=== PATIENT | female | born 1940 | race Caucasian/White ===

== ENCOUNTER 2016-11-05 11:16 | Day surgery (SDC) | payer MEDICARE, OTHER ==
[2016-11-05] MEDS ORDERED: LACTATED RINGERS 500 ML IV ONE (11:42)
[2016-11-05] MEDS ORDERED: KETOROLAC 0.45% OPHTH DROPS OPTH ONE (12:00)
[2016-11-05] MEDS ORDERED: CYCLOPENTOLATE 1% OPHTH DROPS 2 ML OPTH ONE (12:00)
[2016-11-05] MEDS ORDERED: TROPICAMIDE 1% OPHTH 2 ML DROPS OPTH ONE (12:00)
[2016-11-05] MEDS ORDERED: MIDAZOLAM 2 MG/2 ML VIAL IVP ONE (12:45)
[2016-11-05] MEDS ORDERED: PROPARACAINE 0.5% OPHTH DROPS 15 ML OPTH ONE (13:09)
[2016-11-05] MEDS ORDERED: BSS/LIDOCAINE/EPINEPHRINE 1 ML SYRINGE IO ONE ×2 (13:09)
[2016-11-05] MEDS ORDERED: BRIMONIDINE 0.2% OPHTH DROPS 5 ML OPTH ONE (13:09)
[2016-11-05] MEDS ORDERED: TETRACAINE OPHTH DROPS 2 ML OPTH ONE (13:09)
[2016-11-05] MEDS ORDERED: EPINEPHrine 1 MG/ML AMP IO ONE (13:09)
[2016-11-05] MEDS ORDERED: levoFLOXacin 0.5% OPHTH DROPS 5 ML OPTH ONE (13:09)
[2016-11-05] MEDS ORDERED: CHONDR SULF/HYALURONATE SYRINGE IO ONE (13:09)
== END 2016-11-05 11:17 | disposition home or self-care (01) ==
PROC: 08RJ3JZ Replacement of Right Lens with Synthetic Substitute, Percutaneous Approach (ICD-10-PCS; principal; 2016-11-05 12:10)
DX: H25.11 Age-related nuclear cataract, right eye (principal); J45.909 Unspecified asthma, uncomplicated; I49.9 Cardiac arrhythmia, unspecified
CPT/HCPCS: 66984; V2632; V2787

== ENCOUNTER 2016-11-19 08:29 | Day surgery (SDC) | payer MEDICARE, OTHER ==
[2016-11-19] MEDS ORDERED: LACTATED RINGERS 1,000 ML IV ONE (09:43)
[2016-11-19] MEDS ORDERED: MIDAZOLAM 2 MG/2 ML VIAL IVP ONE (11:00)
[2016-11-19] MEDS ORDERED: BSS/LIDOCAINE/EPINEPHRINE 1 ML SYRINGE IO ONE (11:23)
[2016-11-19] MEDS ORDERED: BRIMONIDINE 0.2% OPHTH DROPS 5 ML OPTH ONE (11:23)
[2016-11-19] MEDS ORDERED: TETRACAINE 0.5% OPHTH DROPS 4 ML OPTH ONE (11:23)
[2016-11-19] MEDS ORDERED: PROPARACAINE 0.5% OPHTH DROPS 15 ML OPTH ONE (11:23)
[2016-11-19] MEDS ORDERED: EPINEPHrine 1 MG/ML AMP IO ONE (11:23)
[2016-11-19] MEDS ORDERED: CHONDR SULF/HYALURONATE SYRINGE IO ONE (11:23)
== END 2016-11-19 08:30 | disposition home or self-care (01) ==
PROC: 08RK3JZ Replacement of Left Lens with Synthetic Substitute, Percutaneous Approach (ICD-10-PCS; principal; 2016-11-19 10:15)
DX: H26.9 Unspecified cataract (principal); K21.9 Gastro-esophageal reflux disease without esophagitis; E03.9 Hypothyroidism, unspecified; G25.81 Restless legs syndrome; J45.909 Unspecified asthma, uncomplicated
CPT/HCPCS: 66984; J7120; V2632

== ENCOUNTER 2017-01-14 08:00 | Outpatient (CLI) | payer MEDICARE, OTHER | END 2017-01-14 08:01 | disposition home or self-care (01) | DX: E89.0 Postprocedural hypothyroidism (principal); L29.9 Pruritus, unspecified; R51 Headache; E21.3 Hyperparathyroidism, unspecified ==

== ENCOUNTER 2017-06-16 15:32 | Emergency (ER) | payer MEDICARE, OTHER ==
[2017-06-16 16:28] VITALS: BP 146/88
--- NOTE | 2017-06-16 17:47 | ED Physician Documentation ---
History of Present Illness - Stated complaint Stated Complaint: L CALF PX/SWELLING - Chief complaint Chief Complaint: Ext Problem - History obtained from History obtained from: Patient - History of Present Illness Timing: Today - Additonal information Additional information: swelling and pain to the left lower lateral calf that has persisted. The patient is concerned about a blood clot and has come to the ED after talking to her primary. She is able to walk on this. Review of Systems Constitutional: denies: Fever, Chills, Myalgias Eyes: denies: Decreased vision Ears: denies: Loss of hearing, Ear pain Nose: denies: Reviewed and negative Throat: denies: Sore throat Cardiac: denies: Chest pain / pressure, Palpitations Respiratory: denies: Dyspnea, Cough GI: reports: Diarrhea. denies: Abdominal Pain, Nausea, Vomiting : denies: Dysuria Musculoskeletal: reports: Extremity pain, Extremity swelling. 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 HEENT: Tonsil/Adenoidectomy - Present Medications Home Medications: Ambulatory Orders Medication Instructions Recorded Confirmed Esomeprazole Magnesium [Nexium] 40 mg PO DAILY 09/17/13 06/16/17 Estrogens, Conjugated [Premarin] 0.3 mg PO DAILY 09/17/13 06/16/17 Levothyroxine [Synthroid] 112 mcg PO DAILY 09/17/13 06/16/17 Propranolol [Inderal] 80 mg PO DAILY 09/17/13 06/16/17 Gabapentin 300 mg PO QPM 12/25/14 06/16/17 Ropinirole HCl 1 mg PO DAILY 12/25/14 06/16/17 Acetaminophen/Diphenhydramine [Eql 2 each PO QPM PRN 11/04/16 06/16/17 Acetaminophen Pm Gelcap] - Allergies Allergies/Adverse Reactions: Allergies Allergy/AdvReac Type Severity Reaction Status Date / Time tape Allergy burn Uncoded 06/16/17 16:20 - Social History Does the pt smoke?: No Smoking Status: Never smoker Does the pt drink ETOH?: No Does the pt have substance abuse?: No - Immunizations Immunizations are current?: Yes - POLST Patient has POLST: No PD ED PE NORMAL - Vitals Vital signs reviewed: Yes (hypertensive ) - General General: No acute distress, Well developed/nourished - HEENT HEENT: Atraumatic, PERRL - Neck Neck: Supple, no meningeal sign - Respiratory Respiratory: No respiratory distress - Derm Derm: Normal color, Warm and dry, No rash - Extremities Extremities: No deformity, Other (There is subtle swelling to the lateral aspect of the left upper calf. There is no tenderness to the posterior thigh. There is some mild swelling to the left foot. ) - Neuro Neuro: No motor deficit, No sensory deficit - Psych Psych: Normal mood, Normal affect Results - Vitals Vitals: Oxygen O2 Source Room air - Rads (name of study) duplex left Radiology: Prelim report reviewed (Impression: Negative for deep venous thrombosis in left lower extremity.), EMP read indepedently, See rad report PD MEDICAL DECISION MAKING - ED course Complexity details: reviewed results, re-evaluated patient, considered differential, d/w patient ED course: 76-year-old female with a pain and swelling in her left lateral calf does not have DVT on ultrasound examination. She cannot really recall what she did to strain this leg or to injure it in any way she was quite active on Thursday doing a lot of housecleaning Thursday she spent the day doing a little of nothing and yesterday had her hair done.She is awoken this morning with this pain and swelling and really cannot find a significant explanation. Departure - Departure Disposition: 01 Home, Self Care Clinical Impression: Strain of calf muscle Qualifiers: Encounter type: initial encounter Laterality: left Qualified Code(s): S86.812A - Strain of other muscle(s) and tendon(s) at lower leg level, left leg, initial encounter Condition: Stable Instructions: ED Strain Muscle Ext Follow-Up: Shane Mckeon MD [Primary Care Provider] - Discharge Date/Time: 06/16/17 19:08
--- NOTE | 2017-06-16 19:06 | Ultrasound Preliminary Report ---
Exam: US Duplex Ext Veins Left IMPRESSION: Negative for deep venous thrombosis in left lower extremity [facility] SITE ID: [id number]
--- NOTE | 2017-06-16 19:09 | Ultrasound Report ---
EXAM: LEFT LOWER EXTREMITY VENOUS ULTRASOUND EXAM DATE: 06/16/2017 06:04 PM. CLINICAL HISTORY: Lateral swelling/pain . COMPARISON: None. TECHNIQUE: Real-time sonographic vascular imaging was performed by the billiard table assembler through the lower extremity utilizing both color-flow and Doppler spectral analysis. Multiple accounts payable representative static dion ges were saved for review. FINDINGS: Common Femoral Vein (CFV): Normal. CFV-GSV Junction: Normal. Profunda Femoral Vein (PFV): Normal. Femoral Vein (FV) Prox: Normal. Femoral Vein (FV) Mid: Normal. Femoral Vein (FV) Dist: Normal. Popliteal Vein: Normal. Posterior Tibial Veins: Normal. Peroneal Veins: Normal. Other: None. IMPRESSION: Negative for deep venous thrombosis in left lower extremity [facility] Referring Provider Line: [phone] SITE ID: [id number]
== END 2017-06-16 19:08 | disposition home or self-care (01) ==
LOC: ED 15:32
DX: S86.812A Strain of other muscle(s) and tendon(s) at lower leg level, left leg, initial encounter (principal); E03.9 Hypothyroidism, unspecified
CPT/HCPCS: 99283

== ENCOUNTER 2017-08-19 14:56 | Outpatient (CLI) | payer MEDICARE, OTHER ==
--- NOTE | 2017-08-20 10:10 | XRAY Report ---
TWO-VIEW CHEST: 08/19/2017 CLINICAL INDICATION: Chest pain. COMPARISON: 09/17/2013 FINDINGS: Frontal and lateral views of the chest demonstrate a normal cardiac silhouette. The lungs are clear. No effusion or pneumothorax is present. IMPRESSION: NORMAL CHEST. JOB #: [id number] EXT JOB #:[id number]
== END 2017-08-19 14:57 | disposition home or self-care (01) ==
LOC: DI.S 14:56
PROVIDERS: ATTEND Nurse Practitioner Family
DX: R07.9 Chest pain, unspecified (principal)
CPT/HCPCS: 71020

== ENCOUNTER 2018-03-11 14:11 | Outpatient (CLI) | payer MEDICARE, OTHER ==
[2018-03-11 14:54] LABS: CALCIUM 8.7 mg/dL (8.5-10.3); CREATININE 1.1 mg/dL (0.4-1.0)
== END 2018-03-11 14:12 | disposition home or self-care (01) ==
LOC: LAB 14:11
PROVIDERS: ATTEND Internal Medicine Cardiovascular Disease
DX: R06.00 Dyspnea, unspecified (principal)
CPT/HCPCS: 36415; 80048

== ENCOUNTER 2018-04-10 08:16 | Outpatient (CLI) | payer MEDICARE, OTHER | END 2018-04-10 08:17 | disposition home or self-care (01) | LOC: DI 08:16 | PROVIDERS: ATTEND Internal Medicine Cardiovascular Disease | DX: I35.1 Nonrheumatic aortic (valve) insufficiency (principal); R06.09 Other forms of dyspnea | CPT/HCPCS: 93306 ==

== ENCOUNTER 2018-05-13 16:15 | Outpatient (CLI) | payer MEDICARE, OTHER ==
--- NOTE | 2018-05-13 17:55 | XRAY Report ---
Reason: PAIN 1ST MT RT FOOT PAIN,LT ANKEL TOES Procedure Date: 05/13/2018 Accession Number: [id number] / [id number] Procedure: XR - Foot 3 View BILAT CPT Code: FULL RESULT: EXAM: BILATERAL FOOT RADIOGRAPHY EXAM DATE: 05/13/2018 04:29 PM. CLINICAL HISTORY: Pain. COMPARISON: Right foot dated 09/25/2015. TECHNIQUE: 3 views. FINDINGS: Bones: No osteopenia. Small accessory ossicle medial to the left navicular base. Small plantar calcaneal spurs, right larger than left. No definite fracture or other bone lesion. Joints: Minimal degenerative changes in the first MTP joints. Otherwise unremarkable. Soft Tissues: Unremarkable. IMPRESSION: Small spurs and other chronic findings. No acute disease. [facility]
--- NOTE | 2018-05-13 17:56 | XRAY Report ---
Reason: PAIN 1ST MT RT FOOT PAIN,LT ANKEL TOES Procedure Date: 05/13/2018 Accession Number: [id number] / [id number] Procedure: XR - Ankle 3 View LT CPT Code: FULL RESULT: EXAM: LEFT ANKLE RADIOGRAPHY EXAM DATE: 05/13/2018 04:29 PM. CLINICAL HISTORY: Pain. COMPARISON: 09/06/2013. TECHNIQUE: 3 views. FINDINGS: Bones: Normal. No fractures or bone lesions. Joints: Normal. No effusion. No subluxations. The ankle mortise is normally aligned. Soft Tissues: Unremarkable. IMPRESSION: Normal ankle radiography. [facility]
== END 2018-05-13 16:16 | disposition home or self-care (01) ==
LOC: DI 16:15
PROVIDERS: ATTEND Podiatrist
DX: M77.32 Calcaneal spur, left foot (principal); M77.31 Calcaneal spur, right foot; M79.675 Pain in left toe(s); M25.572 Pain in left ankle and joints of left foot

== ENCOUNTER 2018-08-26 11:26 | Emergency (ER) | payer MEDICARE, OTHER ==
--- NOTE | 2018-08-26 12:27 | ED Physician Documentation ---
History of Present Illness - Stated complaint Stated Complaint: RODRIGUEZ X 7 DAYS - Chief complaint Chief Complaint: Neuro - History obtained from History obtained from: Patient - History of Present Illness Timing: Today Pain level max: 8 Pain level now: 6 - Additonal information Additional information: Patient is a 77-year-old female with a history of chronic migraine headaches. She states she normally has 1-2/month. Normally resolves with Imitrex. This headache has been coming and going for the past 7 days. It is not a typical location for her on the right side of her head. She states that she does get spots in her vision before her headaches and that this is unchanged for her. She also had intermittent dizzy spells over the last week where she would feel the room spinning for a few seconds at a time. No focal neurological deficits. No new visual changes. The headaches are better with Imitrex. When she has the headache it is worse with light and sound. She has not taken anything for the headache today. Saw her PCP who referred her to the emergency department today. Review of Systems Ten Systems: 10 systems reviewed and negative Constitutional: denies: Fever, Chills Eyes: reports: Photophobia Ears: denies: Ear pain Nose: denies: Rhinorrhea / runny nose, Congestion, Epistaxis, Sinus pressure / pain Throat: denies: Sore throat Cardiac: denies: Chest pain / pressure Respiratory: denies: Cough GI: reports: Nausea. denies: Abdominal Pain, Vomiting, Diarrhea Skin: denies: Rash Musculoskeletal: denies: Neck pain, Back pain Neurologic: denies: Focal weakness, Numbness, Confused, Head injury, LOC PD PAST MEDICAL HISTORY - Past Medical History Past Medical History: Yes Cardiovascular: Arrhythmia, Valve disorder Respiratory: Asthma Endocrine/Autoimmune: HyPOthyroidism GI: GERD, Colon polyps, Other : None HEENT: Chronic vision loss Psych: Depression Musculoskeletal: Osteoarthritis, Fibromyalgia, Chronic back pain Derm: Psoriasis, Rosacea - Past Surgical History Past Surgical History: Yes General: Cholecystectomy, Appendectomy 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 HEENT: Tonsil/Adenoidectomy - Present Medications Home Medications: Ambulatory Orders Medication Instructions Recorded Confirmed Esomeprazole Magnesium [Nexium] 40 mg PO DAILY 09/17/13 06/16/17 Estrogens, Conjugated [Premarin] 0.3 mg PO DAILY 09/17/13 06/16/17 Levothyroxine [Synthroid] 112 mcg PO DAILY 09/17/13 06/16/17 Propranolol [Inderal] 80 mg PO DAILY 09/17/13 06/16/17 Gabapentin 300 mg PO QPM 12/25/14 06/16/17 Ropinirole HCl 1 mg PO DAILY 12/25/14 06/16/17 Acetaminophen/Diphenhydramine [Eql 2 each PO QPM PRN 11/04/16 06/16/17 Acetaminophen Pm Gelcap] Diazepam [Valium] 0 08/26/18 SUMAtriptan [Imitrex] 25 08/26/18 Sumatriptan [Imitrex] 20 mg NS ONCE PRN #7 spray 08/26/18 - Allergies Allergies/Adverse Reactions: Allergies Allergy/AdvReac Type Severity Reaction Status Date / Time tape Allergy Mild burn Uncoded 08/26/18 11:35 - Social History Does the pt smoke?: No Smoking Status: Never smoker Does the pt drink ETOH?: No Does the pt have substance abuse?: No - Immunizations Immunizations are current?: Yes - POLST Patient has POLST: No PD ED PE NORMAL - Vitals Vital signs reviewed: Yes - General General: Alert and oriented X 3, No acute distress, Well developed/nourished - HEENT HEENT: Atraumatic, PERRL, EOMI, Moist mucous membranes, Pharynx benign - Neck Neck: Supple, no meningeal sign - Cardiac Cardiac: RRR, Strong equal pulses - Respiratory Respiratory: No respiratory distress, Clear bilaterally - Abdomen Abdomen: Soft, Non tender, Non distended - Derm Derm: Warm and dry, No rash - Extremities Extremities: No edema - Neuro Neuro: Alert and oriented X 3, tanker driver 2-12 intact, No motor deficit, No sensory deficit Eye Opening: Spontaneous Motor: Obeys Commands Verbal: Oriented GCS Score: 15 - Psych Psych: Normal mood, Normal affect Results - Vitals Vitals: Vital Signs - 24 hr 08/26/18 08/26/18 08/26/18 11:32 14:03 14:55 Temperature 36.7 C 36.6 C Heart Rate 72 54 L 70 Respiratory 18 9 L Rate Blood Pressure 150/87 H 140/62 H O2 Saturation 97 99 100 Oxygen O2 Source Room air - EKG (time done) 1138 Rate: Rate (enter#) (57) Rhythm: NSR Dalton: Normal Intervals: Normal AL QRS: Normal Ischemia: Normal ST segments - Labs Labs: Laboratory Tests 08/26/18 08/26/18 08/26/18 12:50 12:50 12:50 WBC 4.8 RBC 4.45 Hgb 13.1 Hct 39.2 MCV 88.1 MCH 29.5 MCHC 33.5 RDW 13.1 Plt Count 198 MPV 7.9 Neut # (Auto) 1.8 Lymph # (Auto) 2.3 [place] # (Auto) 0.5 Eos # (Auto) 0.2 Baso # (Auto) 0.1 Absolute Nucleated RBC 0.00 Nucleated RBC % 0.1 ESR 17 Sodium 137 Potassium 4.2 Chloride 106 Carbon Dioxide 25 Anion Gap 6.0 BUN 23 H Creatinine 1.0 Estimated GFR (MDRD) 54 L Glucose 106 H Calcium 9.1 Total Bilirubin 0.6 AST 16 ALT 13 Alkaline Phosphatase 58 C-Reactive Protein Total Protein 7.4 Albumin 4.0 Globulin 3.4 Albumin/Globulin Ratio 1.2 Lipase 32 08/26/18 12:50 WBC RBC Hgb Hct MCV MCH MCHC RDW Plt Count MPV Neut # (Auto) Lymph # (Auto) [place] # (Auto) Eos # (Auto) Baso # (Auto) Absolute Nucleated RBC Nucleated RBC % ESR Sodium Potassium Chloride Carbon Dioxide Anion Gap BUN Creatinine Estimated GFR (MDRD) Glucose Calcium Total Bilirubin AST ALT Alkaline Phosphatase C-Reactive Protein < 1.0 Total Protein Albumin Globulin Albumin/Globulin Ratio Lipase - Rads (name of study) head CT Radiology: Prelim report reviewed, EMP read contemporaneously, See rad report (No acute intracranial abnormality) PD MEDICAL DECISION MAKING - ED course Complexity details: reviewed results, re-evaluated patient, considered differential, d/w patient ED course: Patient is a 77-year-old female with her usual migraine headache. Given Toradol and Zofran. Headache resolved. As this had been ongoing for some time, head CT was performed does not does not show any acute abnormalities. No evidence of temporal arteritis. No SAH. No intracranial hemorrhage. Headache resolved in the ED. will trial on intranasal imitrex for home. Patient counseled regarding signs and symptoms for which I believe and urgent re-evaluation would be necessary. Patient with good understanding of and agreement to plan and is comfortable going home at this time This document was made in part using voice recognition software. While efforts are made to proofread this document, sound alike and grammatical errors may occur. Departure - Departure Disposition: 01 Home, Self Care Clinical Impression: Headache Qualifiers: Headache type: unspecified Headache chronicity pattern: acute headache Intractability: not intractable Qualified Code(s): R51 - Headache Condition: Good Instructions: ED Headache Migraine Follow-Up: Shane Mckeon MD [Primary Care Provider] - Within 1 week Prescriptions: Sumatriptan [Imitrex] 20 mg NS ONCE PRN #7 spray PRN Reason: headache Comments: Return if you worsen. Your tests are normal today. You can try the intranasal imitrex at home. Discharge Date/Time: 08/26/18 14:56
[2018-08-26] MEDS ORDERED: KETOROLAC 60 MG/2 ML VIAL IVP STA (12:41)
[2018-08-26] MEDS ORDERED: ONDANSETRON 4 MG/2 ML VIAL IVP STA (12:41)
[2018-08-26 13:33] LABS: BASOPHILS # (AUTO) 0.1 10^3/uL (0.0-0.1); BASOPHILS % (AUTO) 1.2 %; EOSINOPHILS # (AUTO) 0.2 10^3/uL (0.0-0.7); EOSINOPHILS % (AUTO) 3.5 %; HGB - HEMOGLOBIN 13.1 g/dL (12.0-16.0); LYMPHOCYTES # (AUTO) 2.3 10^3/uL (1.5-3.5); MEAN CORPUSCULAR HEMOGLOBIN 29.5 pg (27.0-31.0); MEAN CORPUSCULAR HGB CONC 33.5 g/dL (32.0-36.0); MEAN CORPUSCULAR VOLUME 88.1 fL (81.0-99.0); MEAN PLATELET VOLUME 7.9 fL (7.9-10.8); MONOCYTES # (AUTO) 0.5 10^3/uL (0.0-1.0); MONOCYTES % (AUTO) 10.1 %; NEUTROPHILS # (AUTO) 1.8 10^3/uL (1.5-6.6); NEUTROPHILS % (AUTO) 37.2 %; PLT - PLATELET COUNT 198 10^3/uL (130-450); RED BLOOD COUNT 4.45 10^6/uL (4.20-5.40); RED CELL DISTRIBUTION WIDTH 13.1 % (12.0-15.0); WHITE BLOOD COUNT 4.8 x10^3/uL (4.8-10.8)
[2018-08-26 13:48] LABS: ALBUMIN/GLOBULIN RATIO 1.2 (1.0-2.2); BILIRUBIN,TOTAL 0.6 mg/dL (0.2-1.0); CALCIUM 9.1 mg/dL (8.5-10.3); TOTAL PROTEIN 7.4 g/dL (6.7-8.2)
--- NOTE | 2018-08-26 14:43 | CT Report ---
Reason: R sided headache x1 week Procedure Date: 08/26/2018 Accession Number: [id number] / [id number] Procedure: CT - Head W/O CPT Code: FULL RESULT: EXAM: CT HEAD EXAM DATE: 08/26/2018 02:17 PM. CLINICAL HISTORY: Right-sided headache x1 week. COMPARISON: None. TECHNIQUE: Multiaxial CT images were obtained from the foramen magnum to the vertex. Reformats: Sagittal and coronal. IV contrast: None. In accordance with CT protocol optimization, one or more of the following dose reduction techniques were utilized for this exam: automated exposure control, adjustment of mA and/or KV based on patient size, or use of iterative reconstructive technique. FINDINGS: Parenchyma: No intraparenchymal hemorrhage. No evidence of mass, midline shift, or CT findings of infarction. Nunez-white differentiation is distinct. Extraaxial Spaces: Normal for age. No subdural or epidural collections identified. Ventricles: Normal in size and position. Sinuses and Orbits: Imaged paranasal sinuses, orbits, and mastoids show no significant abnormality. Bones: No evidence of fracture or calvarial defect. Other: None. IMPRESSION: No acute intracranial abnormality. [facility]
[2018-08-26 14:56] VITALS: BP 140/62
== END 2018-08-26 14:56 | disposition home or self-care (01) ==
LOC: ED 11:26
DX: R51 Headache (principal)
CPT/HCPCS: 36415; 70450; 80053; 83690; 85025; 85651; 86140; 93005; 96374; 99283; 99284

== ENCOUNTER 2018-09-24 11:50 | Outpatient (CLI) | payer MEDICARE, OTHER ==
[2018-09-24 20:38] LABS: THYROID STIMULATING HORMONE 1.17 uIU/mL (0.34-5.60)
[2018-09-24 20:40] LABS: FREE T4 (FREE THYROXINE) 1.09 ng/dL (0.58-1.64)
== END 2018-09-24 11:51 | disposition home or self-care (01) ==
LOC: LAB.F 11:50
PROVIDERS: ATTEND Internal Medicine Endocrinology, Diabetes & Metabolism
DX: E89.0 Postprocedural hypothyroidism (principal)
CPT/HCPCS: 36415; 84439; 84443

== ENCOUNTER 2019-01-07 14:47 | Outpatient (CLI) | payer MEDICARE, OTHER ==
--- NOTE | 2019-01-07 15:39 | Mammography Report ---
Reason: SCREENING MAMMO Procedure Date: 01/07/2019 Accession Number: [id number] / [id number] Procedure: [facility] - Screening Mammo w/Kendell CPT Code: FULL RESULT: EXAM: Screening Mammo w/Kendell DATE: 01/07/2019 3:17 PM CLINICAL HISTORY: Screening examination. TECHNIQUE: (B) - Bilateral CC and MLO views were obtained. COMPARISON: None 12/11/2014 12/31/2015, 01/09/2016 PARENCHYMAL PATTERN: (A) - The breasts demonstrate scattered fibroglandular densities bilaterally. FINDINGS: Nearly complete interval resolution of previously discussed posterior inferior opacity. There are no suspicious masses, calcifications, or areas of distortion. IMPRESSION: Negative examination. BI-RADS category 1. RECOMMENDATION: (ANNUAL) - Recommend routine annual screening mammography. BI-RADS CATEGORY: (1) - Negative. STANDARD QUALIFYING STATEMENTS: 1. This examination was not reviewed with the aid of Computer-Aided Detection (CAD). 2. A negative or benign imaging report should not preclude biopsy if clinically suspicious findings are present. 3. Dense breasts may obscure an underlying neoplasm. 4. This examination was reviewed with the aid of 3D breast imaging (tomosynthesis).
== END 2019-01-07 14:48 | disposition home or self-care (01) ==
LOC: DI 14:47
DX: Z12.31 Encounter for screening mammogram for malignant neoplasm of breast (principal)
CPT/HCPCS: 77063; 77067

== ENCOUNTER 2019-05-13 12:34 | Outpatient (CLI) | payer MEDICARE, OTHER ==
--- NOTE | 2019-05-15 02:41 | XRAY Report ---
Reason: CHRONIC BACK PAIN Procedure Date: 05/13/2019 Accession Number: [id number] / [id number] Procedure: XR - ThoracoLumbar 2 View CPT Code: 30509 FULL RESULT: EXAM: THORACOLUMBAR SPINE RADIOGRAPHY EXAM DATE: 05/13/2019 01:41 PM. CLINICAL HISTORY: CHRONIC BACK PAIN. COMPARISONS: XR CERVICAL SPINE 2 OR 3 VIEWS 03/06/2009 5:47 AM. TECHNIQUE: 2 views. FINDINGS: Alignment: Dextroscoliosis of the upper lumbar spine. Bones: No fractures or bone lesions. Disks: Mild degenerative disk disease. Soft Tissues: Normal. The visualized lungs and bowel gas pattern are normal. IMPRESSION: Dextroscoliosis of the upper lumbar spine, with mild degenerative disk disease. No evidence of fracture. [facility]
== END 2019-05-13 12:35 | disposition home or self-care (01) ==
LOC: DI 12:34
PROVIDERS: ATTEND Family Medicine
DX: M51.36 Other intervertebral disc degeneration, lumbar region (principal)
CPT/HCPCS: 72080

== ENCOUNTER 2019-06-17 12:09 | Outpatient (CLI) | payer MEDICARE, OTHER ==
--- NOTE | 2019-06-20 00:55 | CT Report ---
Reason: RIGHT LOWER RIB PAIN Procedure Date: 06/17/2019 Accession Number: [id number] / [id number] Procedure: CT - CHEST WO CPT Code: FULL RESULT: EXAM: CT CHEST EXAM DATE: 06/17/2019 12:55 PM. CLINICAL HISTORY: RIGHT LOWER RIB PAIN. COMPARISONS: ABDOMEN/PELVIS W/ 11/21/2015 5:14 PM. TECHNIQUE: Routine helical CT imaging was performed through the chest. IV contrast: None. Reconstructions: Coronal and sagittal. In accordance with CT protocol optimization, one or more of the following dose reduction techniques were utilized for this exam: automated exposure control, adjustment of mA and/or KV based on patient size, or use of iterative reconstructive technique. FINDINGS: Lungs/Pleura: Approximately 20-30 pulmonary nodules scattered throughout both lungs. The largest measures 4 mm and right middle lobe; image 186 series 4. The nodules are ovoid in shape and sharply marginated. Several of the pulmonary nodules are calcified. No bronchial thickening, consolidation, or edema. Pulmonary vasculature is normal. No pericardial or pleural effusion. No pneumothorax. Mediastinum: Normal. No adenopathy or masses. The heart and great vessels are normal. Bones: Unremarkable. Degenerative disk changes in the thoracic spine. Visualized Abdomen: Unremarkable. 6.3 cm multilobulated hepatic cyst similar in appearance to the study of 11/21/2015. Status post cholecystectomy. Other: None. IMPRESSION: 1. No CT imaging finding to explain the patient's right sided rib pain. 2. Approximately 20-30 pulmonary nodules scattered throughout both lungs. Largest measures 4 mm and several pulmonary nodules are calcified. These nodules may reflect the sequela of prior granulomatous disease exposure. In the absence of known malignancy, no followup imaging is recommended. 3. 6.3 cm hepatic cyst similar appearance to the study from 2015. 4. Status post cholecystectomy. [facility]
== END 2019-06-17 12:10 | disposition home or self-care (01) ==
LOC: DI 12:09
PROVIDERS: ATTEND Family Medicine
DX: R07.81 Pleurodynia (principal); R91.8 Other nonspecific abnormal finding of lung field; K76.89 Other specified diseases of liver; Z90.49 Acquired absence of other specified parts of digestive tract
CPT/HCPCS: 71250

== ENCOUNTER 2019-08-30 09:14 | Outpatient (CLI) | payer MEDICARE, OTHER ==
[2019-08-30] MEDS: BARIUM SULFATE 148 GM POWDER PO ONE (10:53)
[2019-08-30] MEDS: BARIUM SULFATE 176 GM BOTTLE PO ONE (10:54)
[2019-08-30] MEDS: BARIUM SULFATE 700 MG TABLET PO ONE (10:54)
[2019-08-30] MEDS: SIMETHICONE/SOD BICARB/CIT AC 1 EACH PACKET PO ONE (10:56)
--- NOTE | 2019-08-30 12:07 | XRAY Report ---
Reason: OROPHARYNGEAL DYSPHAGIA Procedure Date: 08/30/2019 Accession Number: [id number] / [id number] Procedure: FL - Esophogram CPT Code: Final Report FULL RESULT: EXAM: BARIUM ESOPHAGRAM EXAM DATE: 08/30/2019 10:49 AM. CLINICAL HISTORY: Oropharyngeal dysphagia. COMPARISONS: None. TECHNIQUE: Routine double contrast esophagram. Fluoroscopy Time: 1 minute 43 seconds. Number of Images: 41. FINDINGS: Swallowing Mechanism: Normal. No tracheal aspiration or penetration. Esophageal Motility: Normal peristaltic stripping wave. Mucosa: Normal. No ulcerations or masses. Gastroesophageal Junction: Normal. No hernia, stricture, minimal spontaneous reflux. Other: None. IMPRESSION: Spontaneous reflux. No stricture or diverticulum. [facility]
== END 2019-08-30 09:15 | disposition home or self-care (01) ==
LOC: DI 09:14
PROVIDERS: ATTEND Otolaryngology Otolaryngology/Facial Plastic Surgery
DX: K21.9 Gastro-esophageal reflux disease without esophagitis (principal); R13.12 Dysphagia, oropharyngeal phase
CPT/HCPCS: 74220; A9270

== ENCOUNTER 2020-06-26 23:46 | Outpatient (CLI) | payer MEDICARE, OTHER | END 2020-06-26 23:59 | disposition critical access hospital (66) | LOC: EMS 23:46 | PROVIDERS: ATTEND Surgery | DX: R10.9 Unspecified abdominal pain (principal); R11.0 Nausea; R61 Generalized hyperhidrosis | CPT/HCPCS: A0425; A0427 ==

== ENCOUNTER 2020-06-27 00:12 | Emergency (ER) | payer MEDICARE, OTHER ==
--- NOTE | 2020-06-27 00:18 | ED Physician Documentation ---
History of Present Illness - Stated complaint Stated Complaint: ABD PX - History obtained from History obtained from: Patient - Additonal information Additional information: 79-year-old female with a chief complaint of epigastric pain with nausea that lasted for about 30 seconds and has since resolved. Denies any other complaints denies any history of TX or stroke PE or DVT. Review of Systems Constitutional: reports: Reviewed and negative Eyes: reports: Reviewed and negative Ears: reports: Reviewed and negative Nose: reports: Reviewed and negative Throat: reports: Reviewed and negative Cardiac: reports: Chest pain / pressure, Palpitations Respiratory: reports: Reviewed and negative GI: reports: Abdominal Pain : reports: Reviewed and negative Skin: reports: Reviewed and negative Musculoskeletal: reports: Reviewed and negative Neurologic: reports: Reviewed and negative Psychiatric: reports: Reviewed and negative Endocrine: reports: Reviewed and negative Immunocompromised: reports: Reviewed and negative PD PAST MEDICAL HISTORY - Past Medical History Cardiovascular: Arrhythmia, Valve disorder Respiratory: Asthma Endocrine/Autoimmune: HyPOthyroidism GI: GERD, Colon polyps, Other : None HEENT: Chronic vision loss Psych: Depression Musculoskeletal: Osteoarthritis, Fibromyalgia, Chronic back pain Derm: Psoriasis, Rosacea - Past Surgical History Past Surgical History: Yes General: Cholecystectomy, Appendectomy 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 HEENT: Tonsil/Adenoidectomy - Present Medications Home Medications: Ambulatory Orders Medication Instructions Recorded Confirmed Esomeprazole Magnesium [Nexium] 40 mg PO DAILY 09/17/13 06/16/17 Estrogens, Conjugated [Premarin] 0.3 mg PO DAILY 09/17/13 06/16/17 Levothyroxine [Synthroid] 112 mcg PO DAILY 09/17/13 06/16/17 Propranolol [Inderal] 80 mg PO DAILY 09/17/13 06/16/17 Gabapentin 300 mg PO QPM 12/25/14 06/16/17 Ropinirole HCl 1 mg PO DAILY 12/25/14 06/16/17 Acetaminophen/Diphenhydramine [Eql 2 each PO QPM PRN 11/04/16 06/16/17 Acetaminophen Pm Gelcap] Diazepam [Valium] 0 08/26/18 SUMAtriptan [Imitrex] 25 08/26/18 Sumatriptan [Imitrex] 20 mg NS ONCE PRN #7 spray 08/26/18 - Allergies Allergies/Adverse Reactions: Allergies Allergy/AdvReac Type Severity Reaction Status Date / Time tape Allergy Mild burn Uncoded 06/27/20 00:32 - Social History Does the pt smoke?: No Smoking Status: Never smoker Does the pt drink ETOH?: No Does the pt have substance abuse?: No - Immunizations Immunizations are current?: Yes - POLST Patient has POLST: No PD ED PE NORMAL - Vitals Vital signs reviewed: Yes - General General: Alert and oriented X 3, No acute distress, Well developed/nourished - HEENT HEENT: Atraumatic, PERRL, EOMI, Ears normal, Moist mucous membranes, Pharynx benign, Dentition benign - Neck Neck: Supple, no meningeal sign - Cardiac Cardiac: RRR, No murmur, Strong equal pulses - Respiratory Respiratory: No respiratory distress, Clear bilaterally - Abdomen Abdomen: Normal bowel sounds, Soft, Other (No midline abdominal pulsatile mass, diffuse epigastric tenderness to palpation) - Derm Derm: Warm and dry - Extremities Extremities: No deformity - Neuro Neuro: Alert and oriented X 3 - Psych Psych: Normal mood, Normal affect Results - Vitals Vitals: Vital Signs - 24 hr 06/27/20 06/27/20 06/27/20 00:15 00:31 02:30 Temperature 36.7 C Heart Rate 69 64 68 Respiratory 18 13 13 Rate Blood Pressure 122/63 99/68 99/46 L O2 Saturation 99 99 93 06/27/20 06/27/20 06/27/20 03:00 04:37 05:44 Temperature 36.4 C L 36.5 C Heart Rate 66 70 66 Respiratory 13 12 14 Rate Blood Pressure 100/64 93/57 L 105/55 L O2 Saturation 93 98 97 Oxygen O2 Source Room air - EKG (time done) 00:27 Rate: Other (no stemi) - Labs Labs: Laboratory Tests 06/27/20 06/27/20 06/27/20 00:25 00:25 00:25 WBC 8.4 RBC 4.46 Hgb 12.7 Hct 39.1 MCV 87.7 MCH 28.5 MCHC 32.5 RDW 12.8 Plt Count 211 MPV 9.0 Neut # (Auto) 5.4 Lymph # (Auto) 2.2 [place] # (Auto) 0.6 Eos # (Auto) 0.2 Baso # (Auto) 0.1 Absolute Nucleated RBC 0.00 Nucleated RBC % 0.0 PT 11.6 INR 1.0 APTT 27.2 Sodium 137 Potassium 3.6 Chloride 102 Carbon Dioxide 23 Anion Gap 12.0 BUN 27 H Creatinine 1.2 H Estimated GFR (MDRD) 44 L Glucose 170 H Lactic Acid Calcium 9.1 Total Bilirubin 0.7 AST 88 H ALT 32 Alkaline Phosphatase 85 Total Creatine Kinase 39 Troponin I High Sens B-Natriuretic Peptide Total Protein 7.2 Albumin 3.6 Globulin 3.6 Albumin/Globulin Ratio 1.0 Lipase 35 06/27/20 06/27/20 06/27/20 00:25 00:25 00:25 WBC RBC Hgb Hct MCV MCH MCHC RDW Plt Count MPV Neut # (Auto) Lymph # (Auto) [place] # (Auto) Eos # (Auto) Baso # (Auto) Absolute Nucleated RBC Nucleated RBC % PT INR APTT Sodium Potassium Chloride Carbon Dioxide Anion Gap BUN Creatinine Estimated GFR (MDRD) Glucose Lactic Acid 2.1 Calcium Total Bilirubin AST ALT Alkaline Phosphatase Total Creatine Kinase Troponin I High Sens 3.1 B-Natriuretic Peptide 34 Total Protein Albumin Globulin Albumin/Globulin Ratio Lipase PD MEDICAL DECISION MAKING - ED course Complexity details: reviewed old records, reviewed results, re-evaluated patient, considered differential, d/w patient, d/w family ED course: 79-year-old female with epigastric and chest and abdominal pain negative chest x-ray as well as EKG and troponin negative CT of the abdomen and pelvis pain is resolved. She follow-up with her PCP today. Departure - Departure Disposition: 01 Home, Self Care Clinical Impression: Epigastric pain Condition: Stable Instructions: ED Abdominal Pain Unkn Cause Follow-Up: your, doctor [Other] - 06/27/20 Comments: Your CAT scan does show some fecal retention. This possibly could to be the cause of your pain. Your work-up showed no signs of a heart attack or stroke. Among unsure of the cause of your symptoms. I would like you to follow-up with your primary care provider today for recheck. Return to the emergency department with any concerns. Discharge Date/Time: 06/27/20 05:44
[2020-06-27] MEDS ORDERED: SODIUM CHLORIDE 0.9% 1,000 ML IV STA (00:23)
[2020-06-27] MEDS ORDERED: ONDANSETRON 4 MG/2 ML VIAL IVP STA (00:23)
[2020-06-27] MEDS ORDERED: MORPHINE 2 MG/ML CARPUJECT IVP STA (00:23)
[2020-06-27 00:32] LABS: BASOPHILS # (AUTO) 0.1 10^3/uL (0.0-0.1); BASOPHILS % (AUTO) 0.7 %; EOSINOPHILS # (AUTO) 0.2 10^3/uL (0.0-0.7); EOSINOPHILS % (AUTO) 1.9 %; HGB - HEMOGLOBIN 12.7 g/dL (12.0-16.0); LYMPHOCYTES # (AUTO) 2.2 10^3/uL (1.5-3.5); LYMPHOCYTES % (AUTO) 25.5 %; MEAN CORPUSCULAR HEMOGLOBIN 28.5 pg (27.0-31.0); MEAN CORPUSCULAR HGB CONC 32.5 g/dL (32.0-36.0); MEAN CORPUSCULAR VOLUME 87.7 fL (81.0-99.0); MONOCYTES # (AUTO) 0.6 10^3/uL (0.0-1.0); MONOCYTES % (AUTO) 7.1 %; NEUTROPHILS # (AUTO) 5.4 10^3/uL (1.5-6.6); NEUTROPHILS % (AUTO) 64.1 %; PLT - PLATELET COUNT 211 10^3/uL (130-450); RED BLOOD COUNT 4.46 10^6/uL (4.20-5.40); RED CELL DISTRIBUTION WIDTH 12.8 % (12.0-15.0); WHITE BLOOD COUNT 8.4 x10^3/uL (4.8-10.8)
[2020-06-27 00:38] LABS: PT - PROTHROMBIN TIME 11.6 secs (9.9-12.6)
[2020-06-27 00:45] LABS: ALBUMIN 3.6 g/dL (3.2-5.5); BILIRUBIN,TOTAL 0.7 mg/dL (0.2-1.0); CALCIUM 9.1 mg/dL (8.5-10.3); CREATININE 1.2 mg/dL (0.4-1.0); PARTIAL THROMBOPLASTIN TIME 27.2 secs (24.9-33.3); TOTAL PROTEIN 7.2 g/dL (6.7-8.2)
[2020-06-27] MEDS ORDERED: IOVERSOL 320 100 ML VIAL IVP ONE ×2 (01:25→02:24)
[2020-06-27 05:46] VITALS: BP 105/55
--- NOTE | 2020-06-27 07:50 | XRAY Report ---
PROCEDURE: Chest 1 View X-Ray INDICATIONS: cp TECHNIQUE: One view of the chest was acquired. COMPARISON: Chest x-ray 08/19/2017, CT chest 06/17/2019 FINDINGS: Surgical changes and devices: None. Lungs and pleura: No pleural effusions or pneumothorax. Trace blunting of the right costophrenic ang le suggestive of scarring, given stability. Mediastinum: Mediastinal contours appear normal. Heart size is mildly enlarged. Bones and chest wall: No suspicious bony lesions. Overlying soft tissues appear unremarkable. IMPRESSION: No acute pulmonary process. The above findings are concordant with preliminary report. Reviewed by: Alecia Rodriguez MD on 06/27/2020 7:48 AM PDT Approved by: Alecia Rodriguez MD on 06/27/2020 7:48 AM PDT Station ID: [id number]
--- NOTE | 2020-06-27 07:55 | CT Report ---
PROCEDURE: Abdomen/Pelvis W INDICATIONS: abd pain CONTRAST: IV CONTRAST: Optiray 320 ml: 100 PO CONTRAST: *NO PO CONTRAST TECHNIQUE: After the administration of IV contrast, 5 mm thick sections acquired from the diaphragms to the symp hysis. 5 mm thick coronal and sagittal reformats were acquired. For radiation dose reduction, the f ollowing was used: automated exposure control, adjustment of mA and/or kV according to patient size. COMPARISON: CT abdomen and pelvis 11/21/2015, MRCP 11/22/2015, CT chest 06/17/2019 FINDINGS: Image quality: Excellent. ABDOMEN: Lung bases: Lung bases are clear. Heart size is normal. Solid organs: Liver is enlarged with steatosis. The spleen is Normal in size. Right hepatic cyst is present. Gallbladder has been removed. The common bile duct is prominent measuring approximately 12 mm, unchanged. Pancreas enhances normally. No adrenal nodules. Kidneys demonstrate normal size and enhancement, without hydronephrosis. Peritoneum and bowel: Bowel loops demonstrate normal wall thickness and caliber. No free fluid or a ir. Diverticula are present. Nodes and vessels: No retroperitoneal or mesenteric adenopathy by size criteria. Aorta and inferior vena cava are normal in size. Miscellaneous: No ventral hernias. PELVIS: Genitourinary: Bladder wall thickness is normal. Miscellaneous: No inguinal hernias or adenopathy. Bones: No suspicious bony lesions. No vertebral body compression fractures. IMPRESSION: 1. Unchanged appearance of cholecystectomy with extrahepatic biliary dilation, likely related to post surgical sequela. 2. Diverticulosis. 3. Hepatic cyst. The above findings are concordant with preliminary report. Reviewed by: Alecia Rodriguez MD on 06/27/2020 7:53 AM PDT Approved by: Alecia Rodriguez MD on 06/27/2020 7:53 AM PDT Station ID: [id number]
== END 2020-06-27 05:44 | disposition home or self-care (01) ==
LOC: EDUNIT# → ED 00:12
DX: R10.13 Epigastric pain (principal); R07.9 Chest pain, unspecified; R11.0 Nausea; Z90.49 Acquired absence of other specified parts of digestive tract; K76.89 Other specified diseases of liver
CPT/HCPCS: 36415; 71045; 74177; 80053; 82550; 83605; 83690; 83880; 84484; 85025; 85610; 85730; 93005; 96374; 96375; 99283; 99284; Q9967

== ENCOUNTER 2020-09-11 07:41 | Outpatient (CLI) | payer MEDICARE, OTHER | END 2020-09-11 07:42 | disposition home or self-care (01) | LOC: DI 07:41 | PROVIDERS: ATTEND Internal Medicine Cardiovascular Disease | DX: R06.09 Other forms of dyspnea (principal); R00.2 Palpitations; I35.1 Nonrheumatic aortic (valve) insufficiency | CPT/HCPCS: 93306 ==

== ENCOUNTER 2020-09-14 18:44 | Outpatient (CLI) | payer MEDICARE, OTHER | END 2020-09-14 18:45 | disposition critical access hospital (66) | LOC: EMS 18:44 | PROVIDERS: ATTEND Surgery | DX: R42 Dizziness and giddiness (principal); R00.0 Tachycardia, unspecified | CPT/HCPCS: A0425; A0429 ==

== ENCOUNTER 2020-09-14 19:10 | Emergency (ER) | payer MEDICARE, OTHER ==
[2020-09-14] MEDS ORDERED: METOPROLOL 5 MG/5 ML VIAL IVP STA (19:26)
[2020-09-14] MEDS ORDERED: ONDANSETRON 4 MG/2 ML VIAL IVP STA (19:26)
[2020-09-14] MEDS ORDERED: SODIUM CHLORIDE 0.9% 1,000 ML IV STA (19:26)
--- NOTE | 2020-09-14 19:28 | ED Physician Documentation ---
PD HPI CHEST PAIN - Stated complaint Stated Complaint: DIZZY, TACHYCARDIA,NEAR SYNCOPE - Chief complaint Chief Complaint: Cardiac - History obtained from History obtained from: Patient - History of Present Illness Timing - onset: How many days ago (has had couple days of feeling nausea, without vomiting, but some loose stool. Feeling heart rate going fast and pounding. Had changed BP med at direction of her Real Estate Assistant couple weeks ago, from Inderal to Metoprolol. Had been on 120 mg Propranolol. Started Metoprolol 25 mg QD, then to BID.) Timing - details: Still present, Waxing and waning Quality: No: Pressure, Tightness Associated symptoms: Nausea, General Weakness, Palpitations (feeling heart rate is going fast; had been about 60 on the Inderal. Is 90-120 now.). No: Shortness of air, Feeling faint / dizzy Recently seen: Clinic Review of Systems Constitutional: denies: Fever, Chills Nose: denies: Rhinorrhea / runny nose, Congestion Throat: denies: Sore throat Respiratory: denies: Cough GI: reports: Nausea. 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 HEENT: Tonsil/Adenoidectomy - Present Medications Home Medications: Ambulatory Orders Medication Instructions Recorded Confirmed Esomeprazole Magnesium [Nexium] 40 mg PO DAILY 09/17/13 06/16/17 Estrogens, Conjugated [Premarin] 0.3 mg PO DAILY 09/17/13 06/16/17 Levothyroxine [Synthroid] 112 mcg PO DAILY 09/17/13 06/16/17 Propranolol [Inderal] 80 mg PO DAILY 09/17/13 06/16/17 Gabapentin 300 mg PO QPM 12/25/14 06/16/17 Ropinirole HCl 1 mg PO DAILY 12/25/14 06/16/17 Acetaminophen/Diphenhydramine [Eql 2 each PO QPM PRN 11/04/16 06/16/17 Acetaminophen Pm Gelcap] Diazepam [Valium] 0 08/26/18 SUMAtriptan [Imitrex] 25 08/26/18 Sumatriptan [Imitrex] 20 mg NS ONCE PRN #7 spray 08/26/18 Ondansetron Odt [Zofran] 4 mg TL Q6H PRN #10 tablet 09/14/20 - Allergies Allergies/Adverse Reactions: Allergies Allergy/AdvReac Type Severity Reaction Status Date / Time tape Allergy Mild burn Uncoded 09/14/20 19:14 - Social History Does the pt smoke?: No Smoking Status: Never smoker Does the pt drink ETOH?: No Does the pt have substance abuse?: No - Immunizations Immunizations are current?: Yes - POLST Patient has POLST: No PD ED PE NORMAL - Vitals Vital signs reviewed: Yes (HR relatively fast at 96.) - General General: Alert and oriented X 3, No acute distress, Well developed/nourished - HEENT HEENT: Moist mucous membranes, Pharynx benign - Neck Neck: Supple, no meningeal sign, No adenopathy - Cardiac Cardiac: RRR, Other (mild systolic murmur left chest radiating to neck) - Respiratory Respiratory: Clear bilaterally - Abdomen Abdomen: Soft, Non tender - Derm Derm: Normal color, Warm and dry - Extremities Extremities: No tenderness to palpate, Normal ROM s pain, No edema, No calf tenderness / cord - Neuro Neuro: Alert and oriented X 3, No motor deficit, Normal speech Results - Vitals Vitals: Vital Signs - 24 hr 09/14/20 09/14/20 09/14/20 19:14 19:50 20:20 Temperature 36.2 C L Heart Rate 96 74 74 Respiratory 19 15 12 Rate Blood Pressure 162/88 H 139/83 H 136/80 H O2 Saturation 96 97 96 09/14/20 09/14/20 20:30 21:00 Temperature Heart Rate 72 72 Respiratory 14 9 L Rate Blood Pressure 142/78 H 127/60 O2 Saturation 98 97 Oxygen O2 Source Room air - EKG (time done) 19:33 Rate: Rate (enter#) (78) Rhythm: NSR [place]: Normal Intervals: Normal AL Ischemia: Normal ST segments, T wave inversion (V1-V3 but is concordant with the QRS vector. ). No: ST elevation c/w ischemia, ST depression - Labs Labs: Laboratory Tests 09/14/20 09/14/20 09/14/20 19:45 19:45 19:45 WBC 7.7 RBC 4.57 Hgb 13.0 Hct 39.4 MCV 86.2 MCH 28.4 MCHC 33.0 RDW 13.2 Plt Count 231 MPV 8.8 Neut # (Auto) 3.9 Lymph # (Auto) 2.8 [place] # (Auto) 0.8 Eos # (Auto) 0.2 Baso # (Auto) 0.1 Absolute Nucleated RBC 0.00 Nucleated RBC % 0.0 Sodium 138 Potassium 3.4 L Chloride 105 Carbon Dioxide 23 Anion Gap 10.0 BUN 16 Creatinine 1.0 Estimated GFR (MDRD) 54 L Glucose 111 H Calcium 8.8 Magnesium 1.8 Total Bilirubin 0.8 AST 19 ALT 14 Alkaline Phosphatase 71 Troponin I High Sens B-Natriuretic Peptide 47 Total Protein 7.8 Albumin 3.7 Globulin 4.1 Albumin/Globulin Ratio 0.9 L Lipase 25 09/14/20 19:45 WBC RBC Hgb Hct MCV MCH MCHC RDW Plt Count MPV Neut # (Auto) Lymph # (Auto) [place] # (Auto) Eos # (Auto) Baso # (Auto) Absolute Nucleated RBC Nucleated RBC % Sodium Potassium Chloride Carbon Dioxide Anion Gap BUN Creatinine Estimated GFR (MDRD) Glucose Calcium Magnesium Total Bilirubin AST ALT Alkaline Phosphatase Troponin I High Sens 3.2 B-Natriuretic Peptide Total Protein Albumin Globulin Albumin/Globulin Ratio Lipase - Rads (name of study) chest xray Radiology: Prelim report reviewed (no infiltrates nor signs of CHF.), See rad report PD MEDICAL DECISION MAKING - ED course Complexity details: reviewed results, re-evaluated patient (HR improving without IV meds here as she took PO extra dose 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 Can have her increase home meds to 50 AM, 25 pm. Contact Real Estate Assistant Carolynn. ), considered differential (having some nausea and loose stool for 1-2 days. Had changed from Propranolol to metoprolol succinate couple weeks ago and had started 25 mg then increase t 25 mg BID due to still HR fast and BP elevated. Now feeling ill and noted HR above 100 and feeling weakness. no chest pain. ), d/w patient Departure - Departure Disposition: 01 Home, Self Care Clinical Impression: Tachycardia, Nausea Condition: Stable Record reviewed to determine appropriate education?: Yes Follow-Up: Shane Mckeon MD [Primary Care Provider] - Romelia Leiva MD [Provider Admit Priv/Credential] - Prescriptions: Ondansetron Odt [Zofran] 4 mg TL Q6H PRN #10 tablet PRN Reason: Nausea / Vomiting Comments: I do not think I would expect the nausea and some loose stool from the metoprolol. It may be you have a bit of a stomach bug as well the past couple of days. Use ondansetron if needed for nausea. Stay well-hydrated. continue your metoprolol succinate (Toprol XL) but increase the dose to 50 mg in the morning and 25 mg at night. See if this helps you feel better with less fast heart rate. Call Dr. Leiva's office Thursday to discuss with the nurse the symptoms you are having and if they have any further suggestions or wish to change medicines or dosing. Discharge Date/Time: 09/14/20 21:22
[2020-09-14 19:51] LABS: BASOPHILS # (AUTO) 0.1 10^3/uL (0.0-0.1); BASOPHILS % (AUTO) 0.8 %; EOSINOPHILS # (AUTO) 0.2 10^3/uL (0.0-0.7); EOSINOPHILS % (AUTO) 2.3 %; LYMPHOCYTES # (AUTO) 2.8 10^3/uL (1.5-3.5); MEAN CORPUSCULAR HEMOGLOBIN 28.4 pg (27.0-31.0); MEAN CORPUSCULAR VOLUME 86.2 fL (81.0-99.0); MEAN PLATELET VOLUME 8.8 fL (7.9-10.8); MONOCYTES # (AUTO) 0.8 10^3/uL (0.0-1.0); MONOCYTES % (AUTO) 9.8 %; NEUTROPHILS # (AUTO) 3.9 10^3/uL (1.5-6.6); NEUTROPHILS % (AUTO) 50.7 %; PLT - PLATELET COUNT 231 10^3/uL (130-450); RED BLOOD COUNT 4.57 10^6/uL (4.20-5.40); RED CELL DISTRIBUTION WIDTH 13.2 % (12.0-15.0); WHITE BLOOD COUNT 7.7 x10^3/uL (4.8-10.8)
[2020-09-14 20:04] LABS: ALBUMIN 3.7 g/dL (3.2-5.5); ALBUMIN/GLOBULIN RATIO 0.9 (1.0-2.2); BILIRUBIN,TOTAL 0.8 mg/dL (0.2-1.0); CALCIUM 8.8 mg/dL (8.5-10.3); MAGNESIUM 1.8 mg/dL (1.7-2.8); TOTAL PROTEIN 7.8 g/dL (6.7-8.2)
--- NOTE | 2020-09-14 20:09 | XRAY Report ---
PROCEDURE: Chest 1 View X-Ray INDICATIONS: Chest Pain TECHNIQUE: One view of the chest was acquired. COMPARISON: 06/27/2020 FINDINGS: Surgical changes and devices: None. Lungs and pleura: No pleural effusions or pneumothorax. Lungs are clear. Mediastinum: Mediastinal contours appear normal. Heart size is normal. Bones and chest wall: No suspicious bony lesions. Overlying soft tissues appear unremarkable. IMPRESSION: Chest without acute cardiopulmonary abnormalities. Reviewed by: Pola Mansfield MD on 09/14/2020 8:08 PM [facility] Approved by: Pola Mansfield MD on 09/14/2020 8:08 PM [facility] Station ID: [id number]
[2020-09-14] MEDS ORDERED: METOPROLOL SUCCINATE 25 MG TABLET PO STA (20:43)
[2020-09-14] MEDS ORDERED: ONDANSETRON ODT 4 MG Prepack 2 TL PRN (20:44)
[2020-09-14 21:07] VITALS: BP 127/60
== END 2020-09-14 21:22 | disposition home or self-care (01) ==
LOC: EDUNIT# → ED 19:10
DX: R00.0 Tachycardia, unspecified (principal); R11.0 Nausea; R53.1 Weakness; I10 Essential (primary) hypertension
CPT/HCPCS: 36415; 71045; 80053; 83690; 83735; 83880; 84484; 85025; 93005; 96361; 96374; 99283; 99284; A9270

== ENCOUNTER 2020-09-20 13:57 | Outpatient (CLI) | payer MEDICARE, OTHER ==
[2020-09-20 20:07] LABS: CALCIUM 8.9 mg/dL (8.5-10.3); CREATININE 1.1 mg/dL (0.4-1.0)
== END 2020-09-20 13:58 | disposition home or self-care (01) ==
LOC: LAB.S 13:57
PROVIDERS: ATTEND Nurse Practitioner Family
DX: E87.6 Hypokalemia (principal); R00.0 Tachycardia, unspecified
CPT/HCPCS: 36415; 80048; 84443

== ENCOUNTER 2020-09-29 12:58 | Outpatient (CLI) | payer MEDICARE, OTHER ==
--- NOTE | 2020-09-29 19:44 | Ultrasound Report ---
PROCEDURE: Head or Neck Soft Tissue INDICATIONS: LOCALIZED SWELLING, MASS AND LUMP NECK TECHNIQUE: Real time scanning was performed of the neck region of interest, with image documentation . COMPARISON: None. FINDINGS: No mass, fluid collection, or enlarged lymph nodes in the region of clinical concern in the left supe rior neck near the subareolar gland. IMPRESSION: No mass or enlarged lymph node at the superior left neck at the site of clinical concern. Reviewed by: Manohar Pena MD on 09/29/2020 6:43 PM [place] Approved by: Manohar Pena MD on 09/29/2020 6:43 PM [place] Station ID: [id number]
--- OUTSIDE RECORDS SUMMARY | 2020-10-03 01:51 | EXTERNAL MEDICAL SUMMARY RPT | Continuity of Care Document ---
:1940 Demographics Phone Unavailable Preferred Language Unknown Marital Status Unknown Tenriism Affiliation Unknown Race Unknown Ethnic Group Unknown Author Organization [facility] Address [address] [place] [address] Phone Care Team Providers Name Role Phone Shane Mckeon Unavailable Unavailable Problems date description facility 2020-09-14 19:10 ESSENTIAL (PRIMARY) HYPERTENSION [facility] 2020-09-14 19:10 TACHYCARDIA, UNSPECIFIED [facility] 2020-09-14 19:10 NAUSEA [facility] 2020-09-14 19:10 [facility] [place] 2020-09-20 13:57 HYPOKALEMIA [facility] 2020-09-20 13:57 TACHYCARDIA, UNSPECIFIED [facility] Allergies date description facility SULFA [facility]IOTICS [facility] ADHESIVE TAPE [facility] HYDROCODONE [facility] NITROFURANTOIN [facility] NO ALLERGY INFORMATION AVAILABLE [facility] NO KNOWN ALLERGIES [facility] NO ALLERGY INFORMATION ON FILE [facility] VANCOMYCIN ANALOGUES [facility] ERYTHROPOIETIN ANALOGUES [facility] NO KNOWN ALLERGIES [facility] DAPTOMYCIN [facility] VANCOMYCIN [facility] ERYTHROMYCIN [facility] Results Social History date description facility [id number]
== END 2020-09-29 12:59 | disposition home or self-care (01) ==
LOC: DI 12:58
PROVIDERS: ATTEND Nurse Practitioner Family
DX: R22.1 Localized swelling, mass and lump, neck (principal)

== ENCOUNTER 2020-11-01 13:13 | Outpatient (CLI) | payer MEDICARE, OTHER ==
[2020-11-01 20:07] LABS: CALCIUM 8.7 mg/dL (8.5-10.3); CREATININE 1.1 mg/dL (0.4-1.0)
== END 2020-11-01 13:14 | disposition home or self-care (01) ==
LOC: LAB.S 13:13
PROVIDERS: ATTEND Nurse Practitioner Family
DX: R00.0 Tachycardia, unspecified (principal); E87.6 Hypokalemia
CPT/HCPCS: 36415; 80048; 84443

== ENCOUNTER 2020-11-19 09:45 | Outpatient (CLI) | payer MEDICARE, OTHER ==
--- NOTE | 2020-11-20 11:08 | Mammography Report ---
BILATERAL DIGITAL SCREENING MAMMOGRAM 3D/2D: 11/19/2020 CLINICAL: Routine screening. Comparison is made to exam dated: 01/09/2016 and 01/01/2015 ultrasounds - [facility] . Mammograms- 01/07/2019, 12/31/2015, 12/11/2014, 11/23/2013. There are scattered fibroglandular elements in both breasts. There are multiple cysts in both breasts. No significant masses, calcifications, or other findings are seen in either breast. There has been no significant interval change. IMPRESSION: BENIGN There is no mammographic evidence of malignancy. A 1 year screening mammogram is recommended. This exam was interpreted at Station ID: [id number]. NOTE: For mammograms, a report in lay terms will be sent to the patient. Approximately 15% of breast malignancies will not be visualized mammographically. In the management of a palpable breast mass, a negative mammogram must not discourage biopsy of a clinically suspicious lesion. Electronically Signed By: Pola Mansfield M.D. aty/:11/19/2020 11:35:37 ACR BI-RADS Category 2: Benign Finding(s) 3342F PARENCHYMAL PATTERN: (A) - The breast(s) demonstrate(s) scattered fibroglandular densities. BI-RADS CATEGORY: (2) - 2 RECOMMENDATION: (ANNUAL) - Recommend routine annual screening mammography. [id number] 1 year screening LATERALITY: (B)
== END 2020-11-19 09:46 | disposition home or self-care (01) ==
LOC: DI.S 09:45
PROVIDERS: ATTEND Nurse Practitioner Family
DX: Z12.31 Encounter for screening mammogram for malignant neoplasm of breast (principal); N60.02 Solitary cyst of left breast; N60.01 Solitary cyst of right breast